=== PATIENT | female | born 1970 | race Caucasian/White ===

== ENCOUNTER 2025-06-27 10:09 | Outpatient (AMB) | payer OTHER, MEDICAID, SELFPAY ==
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
--- OUTSIDE RECORDS SUMMARY | 2025-06-27 12:25 | XMS_ITS | Clinical Summary ---
Author Organization [facility] Address [address] [id number] Phone Care Team Providers Care Pension Manager Name Role Phone Billy Mena MD Primary Care Provider [phone] Social History Tobacco Use Types Packs/Day Years Used Date Smoking Tobacco: Never Assessed Education Answer Date Recorded Are you interested in more education? Not on portia e 03/07/2025 Are you concerned about learning? Not on file 03/07/2025 No 03/07/2025 No 03/07/2025 Digital Access Answer Date Recorded No 03/07/2025 No 03/07/2025 Reliable internet access at home? Not on file 03/07/2025 Device with a working camera? Not on file Comments Unknown Sex and Gender Information Value Date Recorded Sex Assigned at Not on file Legal Sex Female 12:51 PM EDT Gender Identity Not on file Sexual Orientation Not on file Plan of Treatment Not on file Medical Devices Not on file Insurance [facility] [employer] PARTNER[employer]IP [employer] HE[employer] PARTNERSHIP ACO [facility] [employer] PARTNERSHIP ACO Care Teams Pension Manager Relationship Specialty Start Date End Date Billy Mena MD [address] [place] [id number] PCP - General Internal Medicine 03/08/25 Additional Source Comments The information contained in this document represents components of the legal health record. It is not the complete legal health record.[facility]
--- OUTSIDE RECORDS SUMMARY | 2025-06-27 12:25 | XMS_ITS | Encounter Summary ---
Author Organization [facility] Address [address] [place] [address] Care Team Providers Care Nurse Transplant Name Role Phone Billy Mena MD Primary Care Provider [phone] Encounter Details Date Type Department Care Team (Late st Contact Info) Description 03/04/2025 Lab Requisition [facility] - Main Lab [address] [facility] [place] [address] Zoey Pitts PA [address] [place] [address] Encounter for other general examination Social History Tobacco Use Types Packs/Day Years Used Date Smoking Tobacco: Never Assessed Comments Unknown Sex and Gender Information Value Date Recorded Sex Assigned at Female 11/08/2024 8:36 AM EDT Legal Sex Female 6:42 AM EST Gender Identity Female 11/08/2024 8:36 AM EDT Sexual Orientation Not on file documented as of this encounter Plan of Treatment Not on file documented as of this encounter Procedures Procedure Name Priority Date/Time Associated Diagnosis Comments CBC WITH AUTO DIFFERENTIAL Routine 03/04/2025 5:40 AM EDT Encounter for other general examination CBC AND DIFFERENTIAL Routine 03/04/2025 5:40 AM EDT Encounter for other general examination MAGNESIUM Routine 03/04/2025 5:40 AM EDT Encounter for other general examination COMPREHENSIVE METABOLIC PANEL Routine 03/04/2025 5:40 AM EDT Encounter for other general examination documented in this encounter Results * (ABNORMAL) CBC auto differential (03/04/2025 5:40 AM EDT) [facility] WBC 7.3 4.8 - 10.8 K/mcL LAB HEMETOLOGY METHOD 03/04/2025 9:36 AM [facility] RBC 3.30(L) 3.80 - 4.80 M/mcL LAB HEMETOLOGY METHOD 03/04/2025 9:36 AM [facility] Hemoglobin 8.8(L) 11.5 - 16.0 g/dL LAB HEMETOLOGY METHOD 03/04/2025 9:36 AM [facility] Hematocrit 28.1(L) 35.0 - 47.0 % LAB HEMETOLOGY METHOD 03/04/2025 9:36 AM [facility] MCV 84.9 79.0 - 98.0 FL LAB HEMETOLOGY METHOD 03/04/2025 9:36 AM [facility] MCH 26.6(L) 27.0 - 32.0 pcg LAB HEMETOLOGY METHOD 03/04/2025 9:36 AM [facility] MCHC 31.3(L) 32.0 - 37.0 g/dL LAB HEMETOLOGY METHOD 03/04/2025 9:36 AM [facility] RDW 14.1 11.0 - 15.0 % LAB HEMETOLOGY METHOD 03/04/2025 9:36 AM [facility] Platelets 348 130 - 400 K/mcL LAB HEMETOLOGY METHOD 03/04/2025 9:36 AM [facility] MPV 9.4 7.0 - 11.0 FL LAB HEMETOLOGY METHOD 03/04/2025 9:36 AM [facility] NRBC 0.0 <1.0 % LAB HEMETOLOGY METHOD 03/04/2025 9:36 AM [facility] NRBC Absolute 0.00 <0.10 K/mcL LAB HEMETOLOGY METHOD 03/04/2025 9:36 AM [facility] Neutrophils Relative 59.8 % LAB HEMETOLOGY METHOD 03/04/2025 9:36 AM [facility] Lymphocytes Relative 29.1 % LAB HEMETOLOGY METHOD 03/04/2025 9:36 AM [facility] Monocytes Relative 8.7 % LAB HEMETOLOGY METHOD 03/04/2025 9:36 AM [facility] Eosinophils Relative 1.5 % LAB HEMETOLOGY METHOD 03/04/2025 9:36 AM [facility] Basophils Relative 0.5 % LAB HEMETOLOGY METHOD 03/04/2025 9:36 AM [facility] Immature Granulocytes Relative 0.4 % LAB HEMETOLOGY METHOD 03/04/2025 9:36 AM [facility] Neutrophils Absolute 4.37 1.50 - 7.00 K/mcL LAB HEMETOLOGY METHOD 03/04/2025 9:36 AM [facility] Lymphocytes Absolute 2.13 1.00 - 5.00 K/mcL LAB HEMETOLOGY METHOD 03/04/2025 9:36 AM [facility] Monocytes Absolute 0.64 0.20 - 1.00 K/mcL LAB HEMETOLOGY METHOD 03/04/2025 9:36 AM [facility] Eosinophils Absolute 0.11 0.00 - 0.50 K/mcL LAB HEMETOLOGY METHOD 03/04/2025 9:36 AM [facility] Basophils Absolute 0.04 0.00 - 0.20 K/mcL LAB HEMETOLOGY METHOD 03/04/2025 9:36 AM [facility] Immature Granulocytes Absolute 0.03 0.00 - 0.03 K/mcL LAB HEMETOLOGY METHOD 03/04/2025 9:36 AM [facility] Blood Venous blood specimen / Unknown Venipuncture / Unknown 03/04/2025 5:40 AM EDT 03/04/2025 8:41 AM EDT us Zoey YOUSSEF LAB BLOOD ORDERABLES Final Resul t [facility] [address] [place] [address], * (ABNORMAL) Comprehensive metabolic panel (03/04/2025 5:40 AM EDT) Sodium 138 133 - 145 mmol/L LAB CHEMISTRY METHOD 03/04/2025 10:07 AM [facility] Potassium 4.2 3.5 - 5.5 mmol/L LAB CHEMISTRY METHOD 03/04/2025 10:07 AM [facility] Chloride 107 96 - 110 mmol/L LAB CHEMISTRY METHOD 03/04/2025 10:07 AM [facility] CO2 25 21 - 32 mmol/L LAB CHEMISTRY METHOD 03/04/2025 10:07 AM [facility] Anion Gap 6 3 - 11 LAB CHEMISTRY METHOD 03/04/2025 10:07 AM [facility] Glucose 139(H) 70 - 100 mg/dL LAB CHEMISTRY METHOD 03/04/2025 10:07 AM [facility] BUN 22 5 - 25 mg/dL LAB CHEMISTRY METHOD 03/04/2025 10:07 AM [facility] Creatinine 1.25(H) 0.50 - 1.10 mg/dL LAB CHEMISTRY METHOD 03/04/2025 10:07 AM [facility] eGFR 52(L) >=60 mL/min/1. 73m2 LAB CHEMISTRY METHOD 03/04/2025 10:07 AM [facility] Comment:Calculation based on the Chronic Kidney Disease Epidemiology Collaboration (CKD-EPI) equation refit without adjustment for race. BUN/Creatinine Ratio 17.6 LAB CHEMISTRY METHOD 03/04/2025 10:07 AM [facility] Calcium 9.2 8.5 - 10.5 mg/dL LAB CHEMISTRY METHOD 03/04/2025 10:07 AM [facility] AST (SGOT) 38 10 - 42 unit/L LAB CHEMISTRY METHOD 03/04/2025 10:07 AM [facility] ALT (SGPT) 61(H) 10 - 60 unit/L LAB CHEMISTRY METHOD 03/04/2025 10:07 AM [facility] Alkaline Phosphatase 271(H) 42 - 121 unit/L LAB CHEMISTRY METHOD 03/04/2025 10:07 AM [facility] Total Protein 6.6 6.0 - 8.0 g/dL LAB CHEMISTRY METHOD 03/04/2025 10:07 AM [facility] Albumin 3.2 3.2 - 5.0 g/dL LAB CHEMISTRY METHOD 03/04/2025 10:07 AM [facility] Total Bilirubin 0.5 0.0 - 1.4 mg/dL LAB CHEMISTRY METHOD 03/04/2025 10:07 AM [facility] Blood Venous blood specimen / Unknown Venipuncture / Unknown 03/04/2025 5:40 AM EDT 03/04/2025 8:41 AM EDT us Zoey YOUSSEF LAB BLOOD ORDERABLES Final Resul t [facility] [address] [place] [address], * (ABNORMAL) Magnesium (03/04/2025 5:40 AM EDT) Magnesium 1.8(L) 1.9 - 2.6 mg/dL LAB CHEMISTRY METHOD 03/04/2025 10:02 AM EDT [facility] Blood Venous blood specimen / Unknown Venipuncture / Unknown 03/04/2025 5:40 AM EDT 03/04/2025 8:41 AM EDT us Zoey YOUSSEF LAB BLOOD ORDERABLES Final Resul t [facility] [address] [place] [address], documented in this encounter Visit Diagnoses Diagnosis Encounter for other general examination documented in this encounter Care Teams Nurse Transplant Relationship Specialty Start Date End Date Billy Mena MD [address] [place] [address] PCP - General Internal Medicine 11/06/24 documented as of this encounter
--- OUTSIDE RECORDS SUMMARY | 2025-06-27 12:25 | XMS_ITS | Clinical Summary ---
Author Organization [facility] Address [address] [place] [address] Phone Care Team Providers Care Stem Frazer Name Role Phone Billy Mena MD Primary Care Provider [phone] Social History Tobacco Use Types Packs/Day Years Used Date Smoking Tobacco: Never Assessed Comments Unknown Sex and Gender Information Value Date Recorded Sex Assigned at Female 11/08/2024 8:36 AM EDT Legal Sex Female 6:42 AM EST Gender Identity Female 11/08/2024 8:36 AM EDT Sexual Orientation Not on file Plan of Treatment Health Maintenance Due Date Last Done Comments Breast Cancer Screening 1972 Colorectal Cancer Screening: Colonoscopy 1972 Diabetes: Annual Foot Exam 1982 Diabetes: Annual Retina Eye Exam 1982 Hepatitis A Vaccines (1 of 2 - Risk 2-dose series) 12/28/1991 Hepatitis B Vaccines (1 of 3 - 19+ 3-dose series) 12/28/1991 Cervical Cancer Screening: Pap Smear 1993 Pneumococcal Vaccine: 50+ Years (2 of 2 - PCV) 09/15/2018 09/15/2017, 04/11/1998 RSV Immunization Adult Patients (1 - Risk 50-74 years 1-dose series) 2022 Zoster Vaccines (1 of 2) 2022 Depression Screening 07/12/2024 Cholesterol Screening (Lipid Panel) 09/06/2024 HIV Screening 09/06/2024 Hepatitis C Screening 09/06/2024 Social Influencers of Health Screening 09/06/2024 Diabetes: Annual Urine Albumin-Creatinine Ratio (uACR) 11/06/2024 Diabetes: Blood Sugar Control Test (HGBA1C) 11/06/2024 COVID-19 Vaccine ( season) 2025 04/02/2023, 08/28/2021, 02/28/2021, Additional history exists Influenza Vaccine (#1) 2025 , 04/15/2022, 03/30/2021, Additional history exists Diabetes: Annual GFR (Glomerular Filtration Rate) 03/07/2026 03/07/2025, 03/04/2025, 02/16/2025 Hypertension/CHF/CAD Annual BMP Blood Test 03/07/2026 03/07/2025, 03/04/2025, 02/16/2025 DTaP,Tdap,and Td Vaccines (4 - Td or Tdap) 07/21/2027 07/21/2017, 02/02/2013, 07/12/2003 HIB Vaccines Aged Out No longer eligi ble based on patient's age to complete this topic HPV Vaccines Aged Out No longer eligi ble based on patient's age to complete this topic IPV Vaccines Aged Out No longer eligi ble based on patient's age to complete this topic MMR Vaccines Aged Out No longer eligi ble based on patient's age to complete this topic Meningococcal ACWY Vaccine Aged Out N o longer eligible based on patient's age to complete this topic Meningococcal B Vaccine Aged Out No l onger eligible based on patient's age to complete this topic RSV Immunization Patients Under 20 months Aged Out No longer eligible based on patient's age to complete this topic Varicella Vaccines Aged Out No longer eligible based on patient's age to complete this topic Procedures Procedure Name Priority Date/Time Associated Diagnosis Comments COMPREHENSIVE METABOLIC PANEL Routine 03/07/2025 11:40 AM EDT Encounter for other general examination from Last 3 Months or Most Recently Relevant to Health Maintenance Results * (ABNORMAL) Comprehensive metabolic panel (03/07/2025 11:40 AM EDT) Sodium 138 133 - 145 mmol/L LAB CHEMISTRY METHOD 03/07/2025 2:02 PM EDT [facility] Potassium 4.3 3.5 - 5.5 mmol/L LAB CHEMISTRY METHOD 03/07/2025 2:02 PM EDT [facility] Chloride 109 96 - 110 mmol/L LAB CHEMISTRY METHOD 03/07/2025 2:02 PM [facility] CO2 21 21 - 32 mmol/L LAB CHEMISTRY METHOD 03/07/2025 2:02 PM [facility] Anion Gap 8 3 - 11 LAB CHEMISTRY METHOD 03/07/2025 2:02 PM [facility] Glucose 151(H) 70 - 100 mg/dL LAB CHEMISTRY METHOD 03/07/2025 2:02 PM [facility] BUN 19 5 - 25 mg/dL LAB CHEMISTRY METHOD 03/07/2025 2:02 PM [facility] Creatinine 1.49(H) 0.50 - 1.10 mg/dL LAB CHEMISTRY METHOD 03/07/2025 2:02 PM [facility] eGFR 42(L) >=60 mL/min/1. 73m2 LAB CHEMISTRY METHOD 03/07/2025 2:02 PM [facility] Comment:Calculation based on the Chronic Kidney Disease Epidemiology Collaboration (CKD-EPI) equation refit without adjustment for race. BUN/Creatinine Ratio 12.8 LAB CHEMISTRY METHOD 03/07/2025 2:02 PM [facility] Calcium 9.7 8.5 - 10.5 mg/dL LAB CHEMISTRY METHOD 03/07/2025 2:02 [facility] AST (SGOT) 61(H) 10 - 42 unit/L LAB CHEMISTRY METHOD 03/07/2025 2:02 PM [facility] ALT (SGPT) 143(H) 10 - 60 unit/L LAB CHEMISTRY METHOD 03/07/2025 2:02 PM [facility] Alkaline Phosphatase 318(H) 42 - 121 unit/L LAB CHEMISTRY METHOD 03/07/2025 2:02 PM [facility] Total Protein 7.3 6.0 - 8.0 g/dL LAB CHEMISTRY METHOD 03/07/2025 2:02 PM EDT [facility] Albumin 3.8 3.2 - 5.0 g/dL LAB CHEMISTRY METHOD 03/07/2025 2:02 PM EDT [facility] Total Bilirubin 0.5 0.0 - 1.4 mg/dL LAB CHEMISTRY METHOD 03/07/2025 2:02 PM EDT [facility] Blood Venous blood specimen / Unknown Venipuncture / Unknown 03/07/2025 11:40 AM EDT 03/07/2025 12:40 PM EDT us Andra Mendiola MD LAB BLOOD ORDERABLES Final Resu lt [facility] [address] [place] [address], from Last 3 Months or Most Recently Relevant to Health Maintenance Insurance MEDICAID - [place] [facility] Care Teams Stem Frazer Relationship Specialty Start Date End Date Billy Mena MD [address] [place] [address] PCP - General Internal Medicine 11/06/24
--- OUTSIDE RECORDS SUMMARY | 2025-06-27 12:25 | XMS_ITS | Encounter Summary ---
Author Organization [facility] Address [address] [place] [address] Care Team Providers Care Servomechanism Designer Name Role Phone Billy Mena MD Primary Care Provider [phone] Encounter Details Date Type Department Care Team (Late st Contact Info) Description 02/20/2025 Lab Requisition [facility] - Main Lab [address] [facility] [place] [address] Zoey Pitts PA [address] [place] [address] Encounter for other general examination Social History [...] Procedure Name Priority Date/Time Associated Diagnosis Comments MAGNESIUM Routine 02/20/2025 5:39 AM EDT Encounter for other general examination documented in this encounter Results * (ABNORMAL) Magnesium (02/20/2025 5:39 AM EDT) Magnesium 1.8(L) 1.9 - 2.6 mg/dL LAB CHEMISTRY METHOD 02/20/2025 12:08 PM EDT [facility] Blood Venous blood specimen / Unknown Venipuncture / Unknown 02/20/2025 5:39 AM EDT 02/20/2025 9:01 AM EDT us Zoey YOUSSEF LAB BLOOD ORDERABLES Final Resul t [facility] [address] [place] [address], documented in this encounter Visit Diagnoses Diagnosis Encounter for other general examination documented in this encounter Care Teams Servomechanism Designer Relationship Specialty Start Date End Date Billy Mena MD [address] [place] [id number] PCP - General Internal Medicine 11/06/24 documented as of this encounter
--- OUTSIDE RECORDS SUMMARY | 2025-06-27 12:25 | XMS_ITS | Encounter Summary ---
Author Organization [facility] Address [address] [place] [address] Care Team Providers Care Cargo And Ramp Services Manager Name Role Phone Billy Mena MD Primary Care Provider [phone] Encounter Details Date Type Department Care Team (Late st Contact Info) Description 02/18/[address] [facility] - Main Lab [address] [facility] [place] [address] Zoey Pitts PA [address] [place] [address] Encounter for other general examination Social History [...] Procedure Name Priority Date/Time Associated Diagnosis Comments COMPLETE BLOOD COUNT Routine 02/18/2025 6:53 AM EDT Encounter for other general examination MAGNESIUM Routine 02/18/2025 6:53 AM EDT Encounter for other general examination documented in this encounter Results * (ABNORMAL) Complete blood count (02/18/2025 6:53 AM EDT) WBC 9.0 4.8 - 10.8 K/[facility] LAB HEMETOLOGY METHOD 02/18/2025 11:23 AM EDT [facility] LAB RBC 3.20(L) 3.80 - 4.80 M/mcL LAB HEMETOLOGY METHOD 02/18/2025 11:23 AM [facility] LAB Hemoglobin 8.6(L) 11.5 - 16.0 g/dL LAB HEMETOLOGY METHOD 02/18/2025 11:23 AM [facility] LAB Hematocrit 27.5(L) 35.0 - 47.0 % LAB HEMETOLOGY METHOD 02/18/2025 11:23 AM [facility] LAB MCV 85.7 79.0 - 98.0 FL LAB HEMETOLOGY METHOD 02/18/2025 11:23 AM [facility] LAB MCH 26.8(L) 27.0 - 32.0 pcg LAB HEMETOLOGY METHOD 02/18/2025 11:23 AM [facility] LAB MCHC 31.3(L) 32.0 - 37.0 g/dL LAB HEMETOLOGY METHOD 02/18/2025 11:23 AM [facility] LAB RDW 13.3 11.0 - 15.0 % LAB HEMETOLOGY METHOD 02/18/2025 11:23 AM [facility] LAB Platelets 298 130 - 400 K/mcL LAB HEMETOLOGY METHOD 02/18/2025 11:23 AM [facility] LAB MPV 8.8 7.0 - 11.0 FL LAB HEMETOLOGY METHOD 02/18/2025 11:23 AM [facility] LAB NRBC 0.0 <1.0 % LAB HEMETOLOGY METHOD 02/18/2025 11:23 AM [facility] LAB NRBC Absolute 0.00 <0.10 K/mcL LAB HEMETOLOGY METHOD 02/18/2025 11:23 AM [facility] LAB Blood Venous blood specimen / Unknown Venipuncture / Unknown 02/18/2025 6:53 AM EDT 02/18/2025 10:34 AM EDT Zoey [facility]SSE[facility] LAB BLOOD ORDERABLES Final Resul t Performing Organization Address [facility] de Phone Number [facility] [address] [place] [address], [place] [phone] * (ABNORMAL) Magnesium (02/18/2025 6:53 AM EDT) Magnesium 1.7(L) 1.9 - 2.6 mg/dL LAB CHEMISTRY METHOD 02/18/2025 11:47 AM EDT [facility] LAB Blood Venous blood specimen / Unknown Venipuncture / Unknown 02/18/2025 6:53 AM EDT 02/18/2025 10:34 AM EDT Zoey YOUSSEF LAB BLOOD ORDERABLES Final Resul t Performing Organization Address [facility] de Phone Number [facility] [address] [place] [address], [place] [phone] documented in this encounter Visit Diagnoses Diagnosis Encounter for other general examination documented in this encounter Care Teams [employer] Manager Relationship Specialty Start Date End Date Billy Mena MD [address] [place] [address] PCP - General Internal Medicine 11/06/24 documented as of this encounter
--- OUTSIDE RECORDS SUMMARY | 2025-06-27 12:25 | XMS_ITS | Encounter Summary ---
Author Organization [facility] Address [address] [place] [address] Care Team Providers Care E Merchant Name Role Phone Billy Mena MD Primary Care Provider [phone] Encounter Details Date Type Department Care Team (Late st Contact Info) Description 03/07/2025 Lab Requisition [facility] - Main Lab [address] [facility] [place] [address] Andra Mendiola MD [address] [place] [address] Encounter for other general examination Social History [...] documented in this encounter Results * (ABNORMAL) Comprehensive metabolic panel (03/07/2025 11:40 AM EDT) Sodium 138 133 - 145 mmol/L LAB CHEMISTRY METHOD 03/07/2025 2:[address] [facility] LAB Potassium 4.3 3.5 - 5.5 mmol/L LAB CHEMISTRY METHOD 03/07/2025 2:[address] [facility] LAB Chloride 109 96 - 110 mmol/L LAB CHEMISTRY METHOD 03/07/2025 2:02 PM [facility] LAB CO2 21 21 - 32 mmol/L LAB CHEMISTRY METHOD 03/07/2025 2:02 PM [facility] LAB Anion Gap 8 3 - 11 LAB CHEMISTRY METHOD 03/07/2025 2:02 PM [facility] LAB Glucose 151(H) 70 - 100 mg/dL LAB CHEMISTRY METHOD 03/07/2025 2:02 PM [facility] LAB BUN 19 5 - 25 mg/dL LAB CHEMISTRY METHOD 03/07/2025 2:02 PM [facility] LAB Creatinine 1.49(H) 0.50 - 1.10 mg/dL LAB CHEMISTRY METHOD 03/07/2025 2:02 PM [facility] LAB eGFR 42(L) >=60 mL/min/1. 73m2 LAB CHEMISTRY METHOD 03/07/2025 2:02 PM [facility] LAB Comment:Calculation based on the Chronic Kidney Disease Epidemiology Collaboration (CKD-EPI) equation refit without adjustment for race. BUN/Creatinine Ratio 12.8 LAB CHEMISTRY METHOD 03/07/2025 2:02 PM [facility] Calcium 9.7 8.5 - 10.5 mg/dL LAB CHEMISTRY METHOD 03/07/2025 2:02 PM [facility] LAB AST (SGOT) 61(H) 10 - 42 unit/L LAB CHEMISTRY METHOD 03/07/2025 2:02 PM [facility] LAB ALT (SGPT) 143(H) 10 - 60 unit/L LAB CHEMISTRY METHOD 03/07/2025 2:02 PM [facility] LAB Alkaline Phosphatase 318(H) 42 - 121 unit/L LAB CHEMISTRY METHOD 03/07/2025 2:02 PM [facility] LAB Total Protein 7.3 6.0 - 8.0 g/dL LAB CHEMISTRY METHOD 03/07/2025 2:[address] [facility] LAB Albumin 3.8 3.2 - 5.0 g/dL LAB CHEMISTRY METHOD 03/07/2025 2:[address] [facility] Total Bilirubin 0.5 0.0 - 1.4 mg/dL LAB CHEMISTRY METHOD 03/07/2025 2:[address] [facility] LAB Blood Venous blood specimen / Unknown Venipuncture / Unknown 03/07/2025 11:40 AM EDT 03/07/2025 12:40 PM EDT us Andra Mendiola MD LAB BLOOD ORDERABLES Final Resu lt [facility] [address] [place] [address], documented in this encounter Visit Diagnoses Diagnosis Encounter for other general examination documented in this encounter Care Teams E Merchant Relationship Specialty Start Date End Date Billy Mena MD [address] [place] [address] PCP - General Internal Medicine 11/06/24 documented as of this encounter
--- OUTSIDE RECORDS SUMMARY | 2025-06-27 12:25 | XMS_ITS | Encounter Summary ---
Author Organization [facility] Address [address] [place] [address] Care Team Providers Care Vacuum Metalizing Supervisor Name Role Phone Billy Mena MD Primary Care Provider Encounter Details Date Type Department Care Team (Late st Contact Info) Description 02/16/2025 Lab Requisition [facility] - Main Lab [address] [facility] [place] [address] Yobani Mejia PA [address] [address] Encounter for other general examination Social History [...] Diagnosis Comments CBC WITH AUTO DIFFERENTIAL Routine 02/16/2025 6:05 AM EDT Encounter for other general examination VITAMIN D 25 HYDROXY Routine 02/16/2025 6:05 AM EDT Encounter for other general examination CBC AND DIFFERENTIAL Routine 02/16/2025 6:05 AM EDT Encounter for other general examination MAGNESIUM Routine 02/16/2025 6:05 AM EDT Encounter for other general examination COMPREHENSIVE METABOLIC PANEL Routine 02/16/2025 6:05 AM EDT Encounter for other general examination documented in this encounter Results * (ABNORMAL) CBC auto differential (02/16/2025 6:05 AM EDT) WBC 5.8 4.8 - 10.8 K/mcL LAB HEMETOLOGY METHOD 02/16/2025 8:19 AM [facility] LAB RBC 2.70(L) 3.80 - 4.80 M/mcL LAB HEMETOLOGY METHOD 02/16/2025 8:19 AM [facility] LAB Hemoglobin 7.5(L) 11.5 - 16.0 g/dL LAB HEMETOLOGY METHOD 02/16/2025 8:19 AM [facility] LAB Hematocrit 23.1(L) 35.0 - 47.0 % LAB HEMETOLOGY METHOD 02/16/2025 8:19 AM [facility] LAB MCV 84.3 79.0 - 98.0 FL LAB HEMETOLOGY METHOD 02/16/2025 8:19 AM [facility] LAB MCH 27.4 27.0 - 32.0 pcg LAB HEMETOLOGY METHOD 02/16/2025 8:19 AM [facility] LAB MCHC 32.5 32.0 - 37.0 g/dL LAB HEMETOLOGY METHOD 02/16/2025 8:19 AM [facility] LAB RDW 13.5 11.0 - 15.0 % LAB HEMETOLOGY METHOD 02/16/2025 8:19 AM [facility] LAB Platelets 276 130 - 400 K/mcL LAB HEMETOLOGY METHOD 02/16/2025 8:19 AM [facility] LAB MPV 9.0 7.0 - 11.0 FL LAB HEMETOLOGY METHOD 02/16/2025 8:19 AM [facility] LAB NRBC 0.0 <1.0 % LAB HEMETOLOGY METHOD 02/16/2025 8:19 AM [facility] LAB NRBC Absolute 0.00 <0.10 K/mcL LAB HEMETOLOGY METHOD 02/16/2025 8:19 AM [facility] LAB Neutrophils Relative 58.5 % LAB HEMETOLOGY METHOD 02/16/2025 8:19 AM [facility] LAB Lymphocytes Relative 32.0 % LAB HEMETOLOGY METHOD 02/16/2025 8:19 AM [facility] Monocytes Relative 8.1 % LAB HEMETOLOGY METHOD 02/16/2025 8:19 AM [facility] LAB Eosinophils Relative 0.2 % LAB HEMETOLOGY METHOD 02/16/2025 8:19 AM [facility] Basophils Relative 0.7 % LAB HEMETOLOGY METHOD 02/16/2025 8:19 AM [facility] LAB Immature Granulocytes Relative 0.5 % LAB HEMETOLOGY METHOD 02/16/2025 8:19 AM [facility] LAB Neutrophils Absolute 3.39 1.50 - 7.00 K/mcL LAB HEMETOLOGY METHOD 02/16/2025 8:19 AM [facility] LAB Lymphocytes Absolute 1.85 1.00 - 5.00 K/mcL LAB HEMETOLOGY METHOD 02/16/2025 8:19 AM [facility] Monocytes Absolute 0.47 0.20 - 1.00 K/mcL LAB HEMETOLOGY METHOD 02/16/2025 8:19 AM [facility] LAB Eosinophils Absolute 0.01 0.00 - 0.50 K/mcL LAB HEMETOLOGY METHOD 02/16/2025 8:19 AM [facility] Basophils Absolute 0.04 0.00 - 0.20 K/mcL LAB HEMETOLOGY METHOD 02/16/2025 8:19 AM [facility] Immature Granulocytes Absolute 0.03 0.00 - 0.03 K/mcL LAB HEMETOLOGY METHOD 02/16/2025 8:19 AM EDT [facility] Blood Venous blood specimen / Unknown Venipuncture / Unknown 02/16/2025 6:05 AM EDT 02/16/2025 7:43 AM EDT Yobani YOUSSEF LAB BLOOD ORDERABLES Final R esult Performing Organization Address City/[facility]/ZIP Co de Phone Number [facility] [address] [place] [address], [place] [phone] * (ABNORMAL) Vitamin D 25 hydroxy (02/16/2025 6:05 AM EDT) Vit D, 25-Hydroxy 29.0(L) 30.0 - 80.0 ng/mL LAB CHEMISTRY METHOD 02/16/2025 9:59 AM EDT [facility] Blood Venous blood specimen / Unknown Venipuncture / Unknown 02/16/2025 6:05 AM EDT 02/16/2025 7:43 AM EDT Yobani YOUSSEF LAB BLOOD ORDERABLES Final R esult Performing Organization Address City/[facility]/ZIP Co de Phone Number [facility] [address] [place] [address], [place] [phone] * (ABNORMAL) Magnesium (02/16/2025 6:05 AM EDT) Magnesium 1.5(L) 1.9 - 2.6 mg/dL LAB CHEMISTRY METHOD 02/16/2025 8:50 AM EDT [facility] Blood Venous blood specimen / Unknown Venipuncture / Unknown 02/16/2025 6:05 AM EDT 02/16/2025 7:43 AM EDT Yobani YOUSSEF LAB BLOOD ORDERABLES Final R esult [facility] [address] [place] [address], * (ABNORMAL) Comprehensive metabolic panel (02/16/2025 6:05 AM EDT) Sodium 141 133 - 145 mmol/L LAB CHEMISTRY METHOD 02/16/2025 8:52 AM [facility] LAB Potassium 4.1 3.5 - 5.5 mmol/L LAB CHEMISTRY METHOD 02/16/2025 8:52 AM [facility] LAB Chloride 109 96 - 110 mmol/L LAB CHEMISTRY METHOD 02/16/2025 8:52 AM [facility] LAB CO2 27 21 - 32 mmol/L LAB CHEMISTRY METHOD 02/16/2025 8:52 AM [facility] LAB Anion Gap 5 3 - 11 LAB CHEMISTRY METHOD 02/16/2025 8:52 AM [facility] LAB Glucose 104(H) 70 - 100 mg/dL LAB CHEMISTRY METHOD 02/16/2025 8:52 AM [facility] BUN 9 5 - 25 mg/dL LAB CHEMISTRY METHOD 02/16/2025 8:52 AM [facility] LAB Creatinine 0.90 0.50 - 1.10 mg/dL LAB CHEMISTRY METHOD 02/16/2025 8:52 AM [facility] LAB eGFR 77 >=60 mL/min/1. 73m2 LAB CHEMISTRY METHOD 02/16/2025 8:52 AM [facility] LAB Comment:Calculation based on the Chronic Kidney Disease Epidemiology Collaboration (CKD-EPI) equation refit without adjustment for race. BUN/Creatinine Ratio 10.0 LAB CHEMISTRY METHOD 02/16/2025 8:52 AM [facility] Calcium 8.6 8.5 - 10.5 mg/dL LAB CHEMISTRY METHOD 02/16/2025 8:52 AM EDT [facility] AST (SGOT) 26 10 - 42 unit/L LAB CHEMISTRY METHOD 02/16/2025 8:52 AM T [facility] ALT (SGPT) 27 10 - 60 unit/L LAB CHEMISTRY METHOD 02/16/2025 8:52 AM [facility] Alkaline Phosphatase 211(H) 42 - 121 unit/L LAB CHEMISTRY METHOD 02/16/2025 8:52 AM EDT [facility] Total Protein 5.6(L) 6.0 - 8.0 g/dL LAB CHEMISTRY METHOD 02/16/2025 8:52 AM [facility] Albumin 2.7(L) 3.2 - 5.0 g/dL LAB CHEMISTRY METHOD 02/16/2025 8:52 AM [facility] Total Bilirubin 0.6 0.0 - 1.4 mg/dL LAB CHEMISTRY METHOD 02/16/2025 8:52 AM T [facility] Blood Venous blood specimen / Unknown Venipuncture / Unknown 02/16/2025 6:05 AM EDT 02/16/2025 7:43 AM EDT us Yobani YOUSSEF LAB BLOOD ORDERABLES Final R esult [facility] [address] [place] [address], documented in this encounter Visit Diagnoses Diagnosis Encounter for other general examination documented in this encounter Care Teams Vacuum Metalizing Supervisor Relationship Specialty Start Date End Date Billy Mena MD [facility] [address] [address] PCP - General Internal Medicine 11/06/24 documented as of this encounter
== END 2025-06-27 10:37 | disposition home or self-care (01) ==
PROVIDERS: PCP Internal Medicine; Referring Provider Internal Medicine; Visit Provider Psychiatry & Neurology Neurology
DX: G40.909 Epilepsy, unspecified, not intractable, without status epilepticus (principal); G43.009 Migraine without aura, not intractable, without status migrainosus; G31.84 Mild cognitive impairment of uncertain or unknown etiology
CPT/HCPCS: 99213